=== PATIENT | female | born 1995 | race Two or more races ===

== ENCOUNTER 2019-04-01 19:01 | Emergency (ER) | payer SELFPAY ==
[~2019-04-01] VITALS: Ht 160 cm; Wt 68.0 kg
[~2019-04-01 19:01] MED LIST: IBUPROFEN600 MG PO; NKM; TRAMADOL HCL50 MG ORAL; VICODIN 5-5001 EACH PO; ZOFRAN ODT4 MG ORAL
[2019-04-01 19:28] VITALS: BP 148/94
--- NOTE | 2019-04-01 19:38 | NUR ---
ED Nurse Note: Patient walked in to ER c/o abdominal pain, N/V/D x 2 days. AAO x4, VSS at this time, skin is dry, intact, warm to touch.
[2019-04-01] MEDS ORDERED: Dicyclomine 10mg Cap ORAL ONE (19:45)
--- NOTE | 2019-04-01 20:05 | Emergency Room Report ---
History of Present Illness General Chief Complaint: Abdominal Pain Source: Patient Present Illness HPI 23-year-old female presents to the emergency department complaining of 9 out of 10 in severity cramping intermittent abdominal pain with associated bloating, diarrhea and nausea/vomiting. Patient denies blood in the vomit or stool she denies black tarry stools. Patient denies recent travel or ill contacts with similar symptoms she denies suspicion of . Denies fevers or chills. Denies localized pain. Allergies: Coded Allergies: No Known Allergies (Unverified , 07/15/13) Patient History Past Medical History: see triage record Past Surgical History: none Pertinent Family History: none Last Menstrual Period: 03-15-2019 Now: No Reviewed Nursing Documentation: PMH: Agreed; PSxH: Agreed Nursing Documentation-PMH Past Medical History: No Stated History Review of Systems All Other Systems: negative except mentioned in HPI Physical Exam Vital Signs Date Time Temp Pulse Resp B/P (MAP) Pulse Ox O2 Delivery O2 Flow Rate FiO2 04/01/19 19:14 98.2 97 18 148/94 (112) 98 Room Air Sp02 EP Interpretation: reviewed, normal General Appearance: no apparent distress, alert, GCS 15, non-toxic Head: normocephalic, atraumatic Eyes: bilateral eye normal inspection, bilateral eye PERRL ENT: hearing grossly normal, normal voice Neck: full range of motion Respiratory: chest non-tender, lungs clear, normal breath sounds, speaking full sentences Cardiovascular #1: regular rate, rhythm Gastrointestinal: normal bowel sounds, non tender, soft, non-distended, no guarding Genitourinary: normal inspection, no CVA tenderness Musculoskeletal: back normal, gait/station normal, normal range of motion, non- tender Neurologic: alert, oriented x3, responsive, motor strength/tone normal, sensory intact, speech normal, grossly normal Psychiatric: judgement/insight normal Skin: normal color, no rash, warm/dry, well hydrated Medical Decision Making PA Attestation Dr. hart is my supervising Physician whom patient management has been discussed with. Diagnostic Impression: Primary Impression: UTI (urinary tract infection) Qualified Codes: N30.01 - Acute cystitis with hematuria Additional Impression: Abdominal pain, vomiting, and diarrhea ER Course 23-year-old female presents to the emergency department complaining of 9 out of 10 in severity cramping intermittent abdominal pain with associated bloating, diarrhea and nausea/vomiting. Patient denies blood in the vomit or stool she denies black tarry stools. Patient denies recent travel or ill contacts with similar symptoms she denies suspicion of . Denies fevers or chills. Denies localized pain. Ddx considered but are not limited to Diverticulitis, acute appy, diarrhea,UC, PUD, GE, pancreatitis, gallstone, ovarian torsion, ectopic , PID tubo-ovarian abscess. Vital signs: are WNL, pt. is afebrile H&PE are most consistent with GE with UTI ORDERS: -CBC, CMP, LIPASE: Unremarkable -UA: nitrite positive -URINE HCG: Negative ED INTERVENTIONS: -PO zofran 4mg. / Zantac, Fluids - 1 Liter NS -Pepcid PO DISCHARGE: At this time pt. is stable for d/c to home. Will provide printed patient care instructions, and any necessary prescriptions. Care plan and follow up instructions have been discussed with the patient prior to discharge. Labs Test 04/01/19 19:55 White Blood Count 9.6 K/UL (4.8-10.8) Red Blood Count 4.24 M/UL (4.20-5.40) Hemoglobin 12.9 G/DL (12.0-16.0) Hematocrit 37.4 % (37.0-47.0) Mean Corpuscular Volume 88 FL (80-99) Mean Corpuscular Hemoglobin 30.3 PG (27.0-31.0) Mean Corpuscular Hemoglobin Concent 34.4 G/DL (32.0-36.0) Red Cell Distribution Width 11.6 % (11.6-14.8) Platelet Count 278 K/UL (150-450) Mean Platelet Volume 5.5 FL (6.5-10.1) Neutrophils (%) (Auto) 77.5 % (45.0-75.0) Lymphocytes (%) (Auto) 11.5 % (20.0-45.0) Monocytes (%) (Auto) 10.1 % (1.0-10.0) Eosinophils (%) (Auto) 0.3 % (0.0-3.0) Basophils (%) (Auto) 0.7 % (0.0-2.0) Urine Color Inga Urine Appearance Slightly cloudy Urine pH 5 (4.5-8.0) Urine Specific [place] 1.025 (1.005-1.035) Urine Protein 2+ (NEGATIVE) Urine Glucose (UA) Negative (NEGATIVE) Urine Ketones 3+ (NEGATIVE) Urine Blood 5+ (NEGATIVE) Urine Nitrite Positive (NEGATIVE) Urine Bilirubin Negative (NEGATIVE) Urine Ictotest Negative (NEGATIVE) Urine Urobilinogen Normal MG/DL (0.0-1.0) Urine Leukocyte Esterase 3+ (NEGATIVE) Urine RBC 15-20 /HPF (0 - 2) Urine WBC 40-60 /HPF (0 - 2) Urine Squamous Epithelial Cells Moderate /LPF (NONE/OCC) Urine Bacteria Many /HPF (NONE) Sodium Level 138 MMOL/L (136-145) Potassium Level 3.8 MMOL/L (3.5-5.1) Chloride Level 98 MMOL/L (98-107) Carbon Dioxide Level 31 MMOL/L (21-32) Anion Gap 9 mmol/L (5-15) Blood Urea Nitrogen 10 mg/dL (7-18) Creatinine 0.9 MG/DL (0.55-1.30) Estimat Glomerular Filtration Rate > 60 mL/min (>60) Glucose Level 109 MG/DL (74-106) Calcium Level 9.1 MG/DL (8.5-10.1) Total Bilirubin 0.3 MG/DL (0.2-1.0) Aspartate Amino Transf (AST/SGOT) 16 U/L (15-37) Alanine Aminotransferase (ALT/SGPT) 38 U/L (12-78) Alkaline Phosphatase 109 U/L (46-116) Total Protein 8.6 G/DL (6.4-8.2) Albumin 3.6 G/DL (3.4-5.0) Globulin 5.0 g/dL Albumin/Globulin Ratio 0.7 (1.0-2.7) Lipase 94 U/L (73-393) Last Vital Signs Date Time Temp Pulse Resp B/P (MAP) Pulse Ox O2 Delivery O2 Flow Rate FiO2 04/01/19 19:28 97 18 Room Air 04/01/19 19:28 98.2 148/94 98 Status: improved Disposition: HOME, SELF-CARE Condition: Stable Departure Forms: Return to Work Return to Work Date: Apr 04, 2019 Work Restrictions: None Other Restrictions: May return Sooner if Symptoms have resolved. Return to Full Activity: Apr 04, 2019 Patient Instructions: Food Choices to Help Relieve Diarrhea, Adult, Nausea and Vomiting, Adult, [id number], Urinary Tract Infection, [id number] Additional Instructions: Take medications as directed. Follow up with a Primary Care Provider in 3-5 days, even if your symptoms have resolved. --Please review list of primary care clinics, if you do not already have a primary care provider Return sooner to ED if new symptoms occur, or current symptoms become worse. - Please note that this Emergency Department Report was dictated using [employer] fore[employer] technology software, occasionally this can lead to erroneous entry secondary to interpretation by the dictation equipment. Cristiane Haro April 01, 2019 20:05
[2019-04-01 20:11] LABS: BASOPHILS % (AUTO) 0.7 % (0.0-2.0); EOSINOPHILS % (AUTO) 0.3 % (0.0-3.0); HEMATOCRIT 37.4 % (37.0-47.0); HEMOGLOBIN 12.9 G/DL (12.0-16.0); LYMPHOCYTES % (AUTO) 11.5 % (20.0-45.0); MEAN CORPUSCULAR VOLUME 88 FL (80-99); MONOCYTES % (AUTO) 10.1 % (1.0-10.0); NEUTROPHILS % (AUTO) 77.5 % (45.0-75.0); PLATELET COUNT 278 K/UL (150-450); RED BLOOD COUNT 4.24 M/UL (4.20-5.40); RED CELL DISTRIBUTION WIDTH 11.6 % (11.6-14.8); WHITE BLOOD COUNT 9.6 K/UL (4.8-10.8)
[2019-04-01 20:15] LABS: APPEARANCE,URINE SLIGHTLY CLOUDY; BILIRUBIN, URINE NEGATIVE (NEGATIVE); COLOR,URINE AMBER; GLUCOSE, URINE (UA) NEGATIVE (NEGATIVE); KETONES,URINE 3+ (NEGATIVE); LEUKOCYTE ESTERASE ,URINE 3+ (NEGATIVE); NITRITE,URINE POSITIVE (NEGATIVE); PH,URINE 5 (4.5-8.0); PROTEIN,URINE 2+ (NEGATIVE); UROBILINOGEN,URINE NORMAL MG/DL (0.0-1.0)
[2019-04-01 20:22] LABS: ANION GAP 9 mmol/L (5-15); BLOOD UREA NITROGEN 10 mg/dL (7-18); CALCIUM 9.1 MG/DL (8.5-10.1); CARBON DIOXIDE 31 MMOL/L (21-32); CHLORIDE 98 MMOL/L (98-107); CREATININE 0.9 MG/DL (0.55-1.30); POTASSIUM 3.8 MMOL/L (3.5-5.1); SODIUM 138 MMOL/L (136-145)
[2019-04-01 20:26] LABS: ALANINE AMINOTRANSFERASE 38 U/L (12-78); ALBUMIN 3.6 G/DL (3.4-5.0); ALBUMIN/GLOBULIN RATIO 0.7 (1.0-2.7); ALKALINE PHOSPHATASE 109 U/L (46-116); ASPARTATE AMINO TRANSFERASE 16 U/L (15-37); BILIRUBIN,TOTAL 0.3 MG/DL (0.2-1.0)
[2019-04-01] MEDS ORDERED: ZANTAC150 MG ORAL (21:06)
[2019-04-01] MEDS ORDERED: NITROFURANTOIN100 M2 ORAL (21:06)
[2019-04-01] MEDS ORDERED: ONDANSETRON ODT4 MG BC (21:06)
[2019-04-01] MEDS ORDERED: DICYCLOMINE HCL10 MG ORAL (21:06)
[2019-04-01 21:19] VITALS: BP 148/94
--- NOTE | 2019-04-01 21:20 | NUR ---
ER DISCHARGE NOTE: Patient is cleared to be discharged per ERMD, pt is aox4, on room air, with stable vital signs. pt was given dc and prescription instructions, pt was able to verbalize understanding, pt id band and iv site removed without complications. pt is able to ambulate with steady gait. pt took all belongings.
== END 2019-04-01 21:21 | disposition home or self-care (01) ==
LOC: EMR 19:35
DX: N30.01 Acute cystitis with hematuria (principal); R10.9 Unspecified abdominal pain; R11.10 Vomiting, unspecified; R19.7 Diarrhea, unspecified
CPT/HCPCS: 36415; 80053; 81003; 83690; 85025; 87086; 87181; 96361; 96374; 99284; J2405

== ENCOUNTER 2020-01-29 09:36 | Emergency (ER) | payer SELFPAY ==
[~2020-01-29] VITALS: Ht 160 cm; Wt 79.4 kg
[~2020-01-29 09:36] MED LIST changes: +DICYCLOMINE HCL10 MG ORAL; +NITROFURANTOIN100 M2 ORAL; +ONDANSETRON ODT4 MG BC; +ZANTAC150 MG ORAL
[2020-01-29 10:00] VITALS: BP 136/85
--- NOTE | 2020-01-29 10:00 | NUR ---
ED Nurse Note: pt walked in from home due to blood in urine since she had miscarraige recently. pt aao x4 and ambulatory. skin clean and intact. calm and cooperative. c/o abdominal pain 06/13. no cardiac or pulmonary distress at this time.
[2020-01-29 10:14] LABS: BASOPHILS % (AUTO) 0.8 % (0.0-2.0); EOSINOPHILS % (AUTO) 0.1 % (0.0-3.0); HEMATOCRIT 35.2 % (37.0-47.0); LYMPHOCYTES % (AUTO) 15.7 % (20.0-45.0); MEAN CORPUSCULAR VOLUME 89 FL (80-99); MONOCYTES % (AUTO) 9.6 % (1.0-10.0); NEUTROPHILS % (AUTO) 73.8 % (45.0-75.0); PLATELET COUNT 273 K/UL (150-450); RED BLOOD COUNT 3.96 M/UL (4.20-5.40); RED CELL DISTRIBUTION WIDTH 11.5 % (11.6-14.8); WHITE BLOOD COUNT 9.7 K/UL (4.8-10.8)
[2020-01-29 10:16] LABS: APPEARANCE,URINE CLOUDY; BILIRUBIN, URINE NEGATIVE (NEGATIVE); GLUCOSE, URINE (UA) NEGATIVE (NEGATIVE); KETONES,URINE NEGATIVE (NEGATIVE); LEUKOCYTE ESTERASE ,URINE 3+ (NEGATIVE); NITRITE,URINE POSITIVE (NEGATIVE); PH,URINE 6 (4.5-8.0); PROTEIN,URINE 3+ (NEGATIVE); UROBILINOGEN,URINE 8 MG/DL (0.0-1.0)
[2020-01-29 10:23] LABS: ANION GAP 8 mmol/L (5-15); BLOOD UREA NITROGEN 9 mg/dL (7-18); CALCIUM 9.1 MG/DL (8.5-10.1); CARBON DIOXIDE 27 MMOL/L (21-32); CHLORIDE 99 MMOL/L (98-107); CREATININE 0.9 MG/DL (0.55-1.30); POTASSIUM 3.2 MMOL/L (3.5-5.1); SODIUM 134 MMOL/L (136-145)
[2020-01-29 10:28] LABS: ALANINE AMINOTRANSFERASE 76 U/L (12-78); ALBUMIN 3.5 G/DL (3.4-5.0); ALBUMIN/GLOBULIN RATIO 0.7 (1.0-2.7); ALKALINE PHOSPHATASE 121 U/L (46-116); ASPARTATE AMINO TRANSFERASE 54 U/L (15-37); BILIRUBIN,TOTAL 0.6 MG/DL (0.2-1.0)
[2020-01-29 10:29] LABS: COLOR,URINE YELLOW
--- NOTE | 2020-01-29 11:05 | Emergency Room Report ---
History of Present Illness General Chief Complaint: Abdominal Pain Source: Patient Present Illness HPI This patient states she had a very heavy menstrual cycle that started on January 01 and lasted for about a week. States that she also has had some spotting. She notes over the past few days she has had blood in her urine. She also has felt like she has had intermittent fever. She denies nausea or vomiting. She denies cough or congestion. She denies abdominal pain. She has no other complaints. Allergies: Coded Allergies: No Known Allergies (Unverified , 01/29/20) COVID-19 Screening Contact w/high risk pt: No Recent Travel to affected area: No Experienced COVID-19 symptoms?: No Patient History Past Medical History: none Social History: Denies: smoking, alcohol use, drug use Reviewed Nursing Documentation: PMH: Agreed; PSxH: Agreed Nursing Documentation-PMH Past Medical History: No History, Except For Review of Systems All Other Systems: negative except mentioned in HPI Physical Exam Vital Signs Date Time Temp Pulse Resp B/P (MAP) Pulse Ox O2 Delivery O2 Flow Rate FiO2 01/29/20 09:40 99.3 119 20 136/85 (102) 97 Room Air Sp02 EP Interpretation: reviewed, normal General Appearance: no apparent distress, alert, GCS 15, non-toxic Head: normocephalic, atraumatic Eyes: bilateral eye normal inspection, bilateral eye PERRL ENT: hearing grossly normal, normal pharynx, no angioedema, normal voice Neck: full range of motion, supple/symm/no masses Respiratory: no respiratory distress, no retraction, no accessory muscle use, speaking full sentences Cardiovascular #1: tachycardia Gastrointestinal: normal bowel sounds, non tender, soft, non-distended, no guarding, no rebound Rectal: deferred Musculoskeletal: back normal, normal range of motion, gait/station normal, non- tender Neurologic: alert, motor strength/tone normal, oriented x3, sensory intact, responsive, speech normal Psychiatric: judgement/insight normal, memory normal, mood/affect normal, no suicidal/homicidal ideation Skin: no rash, normal color Medical Decision Making Diagnostic Impression: Primary Impression: Pyelonephritis ER Course Patient has a clinical presentation consistent with pyelonephritis. There are no nausea or vomiting and I feel that this patient can tolerate outpatient treatment with oral antibiotics. Overall this patient's evaluation is benign. Patient is stable for outpatient oral antibiotic therapy. Patient's urine test was negative and ultrasound of the pelvis unremarkable. The patient was given return precautions and followup instructions. Laboratory Tests Test 01/29/20 10:00 White Blood Count 9.7 K/UL (4.8-10.8) Red Blood Count 3.96 M/UL (4.20-5.40) L Hemoglobin 12.0 G/DL (12.0-16.0) Hematocrit 35.2 % (37.0-47.0) L Mean Corpuscular Volume 89 FL (80-99) Mean Corpuscular Hemoglobin 30.2 PG (27.0-31.0) Mean Corpuscular Hemoglobin Concent 34.0 G/DL (32.0-36.0) Red Cell Distribution Width 11.5 % (11.6-14.8) L Platelet Count 273 K/UL (150-450) Mean Platelet Volume 7.0 FL (6.5-10.1) Neutrophils (%) (Auto) 73.8 % (45.0-75.0) Lymphocytes (%) (Auto) 15.7 % (20.0-45.0) L Monocytes (%) (Auto) 9.6 % (1.0-10.0) Eosinophils (%) (Auto) 0.1 % (0.0-3.0) Basophils (%) (Auto) 0.8 % (0.0-2.0) Urine Color Yellow Urine Appearance Cloudy Urine pH 6 (4.5-8.0) Urine Specific [place] 1.010 (1.005-1.035) Urine Protein 3+ (NEGATIVE) H Urine Glucose (UA) Negative (NEGATIVE) Urine Ketones Negative (NEGATIVE) Urine Blood 5+ (NEGATIVE) H Urine Nitrite Positive (NEGATIVE) H Urine Bilirubin Negative (NEGATIVE) Urine Urobilinogen 8 MG/DL (0.0-1.0) H Urine Leukocyte Esterase 3+ (NEGATIVE) H Urine RBC Tntc /HPF (0 - 2) H Urine WBC 40-60 /HPF (0 - 2) H Urine Squamous Epithelial Cells Moderate /LPF (NONE/OCC) H Urine Bacteria Many /HPF (NONE) H Sodium Level 134 MMOL/L (136-145) L Potassium Level 3.2 MMOL/L (3.5-5.1) L Chloride Level 99 MMOL/L (98-107) Carbon Dioxide Level 27 MMOL/L (21-32) Anion Gap 8 mmol/L (5-15) Blood Urea Nitrogen 9 mg/dL (7-18) Creatinine 0.9 MG/DL (0.55-1.30) Estimated Glomerular Filtration Rate > 60 mL/min (>60) Glucose Level 126 MG/DL (74-106) H Calcium Level 9.1 MG/DL (8.5-10.1) Total Bilirubin 0.6 MG/DL (0.2-1.0) Aspartate Amino Transferase (AST) 54 U/L (15-37) H Alanine Aminotransferase (ALT) 76 U/L (12-78) Alkaline Phosphatase 121 U/L (46-116) H Total Protein 8.8 G/DL (6.4-8.2) H Albumin 3.5 G/DL (3.4-5.0) Globulin 5.3 g/dL Albumin/Globulin Ratio 0.7 (1.0-2.7) L Human Chorionic Gonadotropin, Quant < 1 mIU/mL (1-6) L CT/MRI/US Diagnostic Results CT/MRI/US Diagnostic Results : Imaging Test Ordered: US pelvis Impression Within normal limits. See official report in electronic medical record. Last Vital Signs Date Time Temp Pulse Resp B/P (MAP) Pulse Ox O2 Delivery O2 Flow Rate FiO2 01/29/20 09:40 99.3 119 20 136/85 (102) 97 Room Air Status: improved Disposition: HOME, SELF-CARE Condition: Improved Referrals: NON PHYSICIAN (PCP) Lashonda Pantoja DO Jan 29, 2020 11:05
[2020-01-29] MEDS ORDERED: NITROFURANTOIN100 M2 ORAL (11:07)
[2020-01-29 11:45] VITALS: BP 124/89
--- NOTE | 2020-01-29 12:26 | Diagnostic Imaging Report ---
Indication: Pelvic pain and bleeding. Reported positive test. Technique: Abdominal and transvaginal pelvic ultrasound including duplex Doppler evaluation. Comparison: None Findings: No intrauterine gestational sac is identified. Endometrium measures 5 mm in thickness. Right ovary measures 4.2 x 1.8 x 3.1 cm/12.5 mL. Left ovary measures 3 x 2.3 x 2.8 cm/9.7 mL. No discrete ovarian lesions identified sonographically. Color and Doppler flow visualized in the bilateral ovaries. No free pelvic fluid identified. IMPRESSION: No intrauterine identified in this patient with a reported positive test. Differential considerations include: * Very early , not yet identified by ultrasound * Failed early * Unidentified ectopic Correlation with clinical findings, trended beta-HCG and short-term interval follow-up ultrasound recommended. No adnexal lesions identified. Symmetric color and Doppler flow visualized in the bilateral ovaries. No free pelvic fluid demonstrated.
== END 2020-01-29 11:20 | disposition home or self-care (01) ==
LOC: EMR 09:50
DX: N12 Tubulo-interstitial nephritis, not specified as acute or chronic (principal)
CPT/HCPCS: 36415; 76801; 76817; 80053; 81003; 84702; 85025; 86850; 86900; 86901; 87086; 87181; 96360; 99284; J8499